=== PATIENT | female | born 1950 | race Hispanic/Latino ===

== ENCOUNTER 2024-06-21 13:51 | Emergency (ER) | payer OTHER ==
--- OUTSIDE RECORDS SUMMARY | 2024-06-21 13:56 | XMS REPORT | Continuity of Care Document ---
Author Name Unknown Address [address] [facility] [address] [place] [address] [facility] thconnect Address [address] [facility] [place] [address] Care Team Providers Care Medicare Compliance Auditor Name Role Phone Donita Boyce Attending Clinician Unavailable Catie Kaminski Attending Clinician Unavailable Dot Paredes Attending Clinician [phone] Daniels_b Attending Clinician Unavailable Nodal_J Attending Clinician Unavailable Adams_R Attending Clinician Unavailable GAYLORD_S Attending Clinician Unavailable Bhavana-Mbayo_A_AH Attending Clinician Unavailable Daniels_b Admitting Clinician Unavailable Nodal_J Admitting Clinician Unavailable Adams_R Admitting Clinician Unavailable GAYLORD_S Admitting Clinician Unavailable Bhavana-Mbayo_A_AH Admitting Clinician Unavailable Payers Payer Name Policy Type Policy Number Effective Date Expirati on Date Source [facility] (MEDICARE REPLACEMENT HMO) [id number] 2020 00:00:00 [facility] C1 [id number] [facility] - [facility] C1 [id number] Com[facility] n [facility] - [facility] C1 [id number] [facility] (MEDICARE REPLACEMENT/ADVAN TAGE - HMO) [id number] 2019 00:00:00 Problems Condition Name Condition Details Condition Category Status Onset Date Resolution Date Last Treatment Date Treating Clinician Comments Source Bilateral tinnitus Tinnitus of both ears Problem [facility] Hearing loss Hearing loss Problem Common [facility] [id number] Hearing difficulty of both ears Problem Common [facility] [id number] Hypertrigl yceridemia Problem Common [facility] Shoulder pain Shoulder pain Problem Common [facility] Blood chemistry abnormal Abnormal blood chemistry Problem Common [facility] Snoring Snoring Problem Common [facility] Sleep apnea Sleep apnea Problem Common [facility] Essential hypertensi on Benign essential HTN Problem Common [facility] Obese Obese Problem Common [facility] [id number] 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 Problem [facility] [id number] Primary osteoarthr itis of both knees Problem Common [facility] Hyperlipid aemia Hyperlipid emia, unspecifie d hyperlipid emia type Problem Common [facility] Hordeolum Hordeolum Problem Comm on [facility] [id number] Ingrown thumb nail, left Problem [facility] [id number] Varicose veins of both lower extremitie s Problem Common [facility] Generalize d osteoarthr itis Generalize d osteoarthr itis Problem [facility] [id number] Neuropathy Problem Com mon [facility] [id number] Bilateral leg paresthesi a Problem [facility] [id number] Unsteady gait Problem Common [facility] Abnormal mammogram Abnormal mammogram Problem Common [facility] Mixed incontinen ce Mixed stress and urge urinary incontinen ce Problem Common [facility] [id number] Primary osteoarthr itis of left shoulder Problem [facility] [id number] Other chronic pain Problem Common [facility] [id number] Lesion of ulnar nerve, unspecifie d upper limb Problem Common [facility] [id number] Subclinica l hypothyroi dism Problem [facility] [id number] Type 2 diabetes mellitus with diabetic neuropathy , unspecifie d Problem [facility] Osteoarthr itis of knee Osteoarthr itis of both knees, unspecifie d osteoarthr itis type Problem [facility] [id number] Bilateral leg cramps Problem [facility] Vitamin D deficiency Vitamin D deficiency Problem [facility] [id number] Ulnar neuropathy of right upper extremity Problem [facility] [id number] Primary osteoarthr itis of right shoulder Problem [facility] Social History Social Habit Start Date Stop Date Quantity Comments Source History of Tobacco Use [facility] Sex Assigned At [facility] Smoking Status Start Date Stop Date Source Never Smoker [facility] Former Smoker 2022-04-14 00:00:00 2022-04-14 00:00:00 [facility] Medications Ordered Medication Name Filled Medication Name Start Date Stop Date Current Medication? Ordering Clinician Indication Dosage Frequency Signature (SIG) Comments Components Source Olopatadine HCl 0.2 % Olopatadine HCl 0.2 % 8-13 00:00: 00 No 1{drop_ into_af fected_ eye} QD Olopatadin e HCl 0.2 % gabapentin 300 mg capsule gabapentin 300 mg capsule Yes [facility] losartan potassium-h ctz 50-12.5 mg tablet losartan potassium-h ctz 50-12.5 mg tablet Yes [facility] pravastatin sodium 40 mg tablet pravastatin sodium 40 mg tablet Yes [facility] Losartan Potassium-H CTZ 50-12.5 MG Losartan Potassium-H CTZ 50-12.5 MG No 1{table t} QD Losartan Potassium- HCTZ 50-12.5 MG Pravastatin Sodium 40 MG Pravastatin Sodium 40 MG No 1{table t} QD Pravastati n Sodium 40 MG oxyBUTYnin Chloride 5 MG oxyBUTYnin Chloride 5 MG No 1{table t} QD oxyBUTYnin Chloride 5 MG Gabapentin 300 MG Gabapentin 300 MG No 1{capsu le} BID Gabapentin 300 MG Levothyroxi ne Sodium 137 MCG Levothyroxi ne Sodium 137 MCG No QD Levothyrox ine Sodium 137 MCG levothyroxi ne sodium 137 mcg tablet levothyroxi ne sodium 137 mcg tablet Yes [facility] Immunizations Ordered Immunization Name Filled Immunization Name Date Status Comments Source Moderna COVID-19 Vaccine (Low Dose Booster) Moderna COVID-19 Vaccine (Low Dose Booster) 2021-04-10 15:36:00 Completed [facility] Moderna COVID-19 Vaccine (Low Dose Booster) Moderna COVID-19 Vaccine (Low Dose Booster) 2021-04-10 15:36:00 Completed [facility] Moderna COVID-19 Vaccine (Low Dose Booster) Moderna COVID-19 Vaccine (Low Dose Booster) 2021-04-10 15:36:00 Completed [facility] Moderna COVID-19 Vaccine (Low Dose Booster) Moderna COVID-19 Vaccine (Low Dose Booster) 2021-04-10 15:36:00 Completed [facility] FLUZONE HIGH DOSE OVER 65 FLUZONE HIGH DOSE OVER 65 2021-03-31 15:34:00 Completed [facility] FLUZONE HIGH DOSE OVER 65 FLUZONE HIGH DOSE OVER 65 2021-03-31 15:34:00 Completed [facility] FLUZONE HIGH DOSE OVER 65 FLUZONE HIGH DOSE OVER 65 2021-03-31 15:34:00 Completed [facility] FLUZONE HIGH DOSE OVER 65 FLUZONE HIGH DOSE OVER 65 2021-03-31 15:34:00 Completed [facility] Shingrix Shingrix 2021-03-11 15:33:00 Completed [facility] Shingrix Shingrix 2021-03-11 15:33:00 Completed [facility] Shingrix Shingrix 2021-03-11 15:33:00 Completed [facility] Shingrix Shingrix 2021-03-11 15:33:00 Completed [facility] Moderna COVID-19 Vaccine Moderna COVID-19 Vaccine 2020-07-14 15:35:00 Completed [facility] Moderna COVID-19 Vaccine Moderna COVID-19 Vaccine 2020-07-14 15:35:00 Completed [facility] Moderna COVID-19 Vaccine Moderna COVID-19 Vaccine 2020-07-14 15:35:00 Completed [facility] Moderna COVID-19 Vaccine Moderna COVID-19 Vaccine 2020-07-14 15:35:00 Completed [facility] Moderna COVID-19 Vaccine Moderna COVID-19 Vaccine 2020-06-12 15:35:00 Completed [facility] Moderna COVID-19 Vaccine Moderna COVID-19 Vaccine 2020-06-12 15:35:00 Completed [facility] Moderna COVID-19 Vaccine Moderna COVID-19 Vaccine 2020-06-12 15:35:00 Completed [facility] Moderna COVID-19 Vaccine Moderna COVID-19 Vaccine 2020-06-12 15:35:00 Completed [facility] Prevnar 13 (PCV13) Prevnar 13 (PCV13) 2016-03-16 15:33:00 Completed [facility] Prevnar 13 (PCV13) Prevnar 13 (PCV13) 2016-03-16 15:33:00 Completed [facility] Prevnar 13 (PCV13) Prevnar 13 (PCV13) 2016-03-16 15:33:00 Completed [facility] Prevnar 13 (PCV13) Prevnar 13 (PCV13) 2016-03-16 15:33:00 Completed [facility] Moderna COVID-19 Vaccine (Low Dose Booster) Moderna COVID-19 Vaccine (Low Dose Booster) Unknown Completed [facility] Pfizer COVID-19 Vaccine Pfizer COVID-19 Vaccine Unknown Completed [facility] Moderna COVID-19 Vaccine Moderna COVID-19 Vaccine Unknown Completed [facility] Shingrix Shingrix Unknown Completed [facility] FLUZONE HIGH DOSE OVER 65 FLUZONE HIGH DOSE OVER 65 Unknown Completed [facility] Prevnar 13 (PCV13) Prevnar 13 (PCV13) Unknown Completed [facility] Moderna COVID-19 Vaccine (Low Dose Booster) Moderna COVID-19 Vaccine (Low Dose Booster) Unknown Completed [facility] Pfizer COVID-19 Vaccine Pfizer COVID-19 Vaccine Unknown Completed [facility] Moderna COVID-19 Vaccine Moderna COVID-19 Vaccine Unknown Completed [facility] Shingrix Shingrix Unknown Completed [facility] FLUZONE HIGH DOSE OVER 65 FLUZONE HIGH DOSE OVER 65 Unknown Completed [facility] Prevnar 13 (PCV13) Prevnar 13 (PCV13) Unknown Completed [facility] Moderna COVID-19 Vaccine (Low Dose Booster) Moderna COVID-19 Vaccine (Low Dose Booster) Unknown Completed [facility] Pfizer COVID-19 Vaccine Pfizer COVID-19 Vaccine Unknown Completed [facility] Moderna COVID-19 Vaccine Moderna COVID-19 Vaccine Unknown Completed [facility] Shingrix Shingrix Unknown Completed [facility] FLUZONE HIGH DOSE OVER 65 FLUZONE HIGH DOSE OVER 65 Unknown Completed [facility] Prevnar 13 (PCV13) Prevnar 13 (PCV13) Unknown Completed [facility] Moderna COVID-19 Vaccine (Low Dose Booster) Moderna COVID-19 Vaccine (Low Dose Booster) Unknown Completed [facility] Pfizer COVID-19 Vaccine Pfizer COVID-19 Vaccine Unknown Completed [facility] Moderna COVID-19 Vaccine Moderna COVID-19 Vaccine Unknown Completed [facility] Shingrix Shingrix Unknown Completed [facility] FLUZONE HIGH DOSE OVER 65 FLUZONE HIGH DOSE OVER 65 Unknown Completed [facility] Prevnar 13 (PCV13) Prevnar 13 (PCV13) Unknown Completed [facility] Moderna COVID-19 Vaccine (Low Dose Booster) Moderna COVID-19 Vaccine (Low Dose Booster) Unknown Completed [facility] Pfizer COVID-19 Vaccine Pfizer COVID-19 Vaccine Unknown Completed [facility] Moderna COVID-19 Vaccine Moderna COVID-19 Vaccine Unknown Completed [facility] Shingrix Shingrix Unknown Completed [facility] FLUZONE HIGH DOSE OVER 65 FLUZONE HIGH DOSE OVER 65 Unknown Completed [facility] Prevnar 13 (PCV13) Prevnar 13 (PCV13) Unknown Completed [facility] Moderna COVID-19 Vaccine (Low Dose Booster) Moderna COVID-19 Vaccine (Low Dose Booster) Unknown Completed [facility] Pfizer COVID-19 Vaccine Pfizer COVID-19 Vaccine Unknown Completed [facility] Moderna COVID-19 Vaccine Moderna COVID-19 Vaccine Unknown Completed [facility] Shingrix Shingrix Unknown Completed [facility] FLUZONE HIGH DOSE OVER 65 FLUZONE HIGH DOSE OVER 65 Unknown Completed [facility] Prevnar 13 (PCV13) Prevnar 13 (PCV13) Unknown Completed [facility] Moderna COVID-19 Vaccine (Low Dose Booster) Moderna COVID-19 Vaccine (Low Dose Booster) Unknown Completed [facility] Pfizer COVID-19 Vaccine Pfizer COVID-19 Vaccine Unknown Completed [facility] Moderna COVID-19 Vaccine Moderna COVID-19 Vaccine Unknown Completed [facility] Shingrix Shingrix Unknown Completed [facility] FLUZONE HIGH DOSE OVER 65 FLUZONE HIGH DOSE OVER 65 Unknown Completed [facility] Prevnar 13 (PCV13) Prevnar 13 (PCV13) Unknown Completed [facility] Moderna COVID-19 Vaccine (Low Dose Booster) Moderna COVID-19 Vaccine (Low Dose Booster) Unknown Completed [facility] Pfizer COVID-19 Vaccine Pfizer COVID-19 Vaccine Unknown Completed [facility] Moderna COVID-19 Vaccine Moderna COVID-19 Vaccine Unknown Completed [facility] Shingrix Shingrix Unknown Completed [facility] FLUZONE HIGH DOSE OVER 65 FLUZONE HIGH DOSE OVER 65 Unknown Completed [facility] Prevnar 13 (PCV13) Prevnar 13 (PCV13) Unknown Completed [facility] Moderna COVID-19 Vaccine (Low Dose Booster) Moderna COVID-19 Vaccine (Low Dose Booster) Unknown Completed [facility] Pfizer COVID-19 Vaccine Pfizer COVID-19 Vaccine Unknown Completed [facility] Moderna COVID-19 Vaccine Moderna COVID-19 Vaccine Unknown Completed [facility] Shingrix Shingrix Unknown Completed [facility] FLUZONE HIGH DOSE OVER 65 FLUZONE HIGH DOSE OVER 65 Unknown Completed [facility] Prevnar 13 (PCV13) Prevnar 13 (PCV13) Unknown Completed [facility] Moderna COVID-19 Vaccine (Low Dose Booster) Moderna COVID-19 Vaccine (Low Dose Booster) Unknown Completed [facility] Pfizer COVID-19 Vaccine Pfizer COVID-19 Vaccine Unknown Completed [facility] Moderna COVID-19 Vaccine Moderna COVID-19 Vaccine Unknown Completed [facility] Shingrix Shingrix Unknown Completed [facility] FLUZONE HIGH DOSE OVER 65 FLUZONE HIGH DOSE OVER 65 Unknown Completed [facility] Prevnar 13 (PCV13) Prevnar 13 (PCV13) Unknown Completed [facility] Moderna COVID-19 Vaccine (Low Dose Booster) Moderna COVID-19 Vaccine (Low Dose Booster) Unknown Completed [facility] Pfizer COVID-19 Vaccine Pfizer COVID-19 Vaccine Unknown Completed [facility] Moderna COVID-19 Vaccine Moderna COVID-19 Vaccine Unknown Completed [facility] Shingrix Shingrix Unknown Completed [facility] FLUZONE HIGH DOSE OVER 65 FLUZONE HIGH DOSE OVER 65 Unknown Completed [facility] Prevnar 13 (PCV13) Prevnar 13 (PCV13) Unknown Completed [facility] Moderna COVID-19 Vaccine (Low Dose Booster) Moderna COVID-19 Vaccine (Low Dose Booster) Unknown Completed [facility] Pfizer COVID-19 Vaccine Pfizer COVID-19 Vaccine Unknown Completed [facility] Moderna COVID-19 Vaccine Moderna COVID-19 Vaccine Unknown Completed [facility] Shingrix Shingrix Unknown Completed [facility] FLUZONE HIGH DOSE OVER 65 FLUZONE HIGH DOSE OVER 65 Unknown Completed [facility] Prevnar 13 (PCV13) Prevnar 13 (PCV13) Unknown Completed [facility] Moderna COVID-19 Vaccine (Low Dose Booster) Moderna COVID-19 Vaccine (Low Dose Booster) Unknown Completed [facility] Pfizer COVID-19 Vaccine Pfizer COVID-19 Vaccine Unknown Completed [facility] Moderna COVID-19 Vaccine Moderna COVID-19 Vaccine Unknown Completed [facility] Shingrix Shingrix Unknown Completed [facility] FLUZONE HIGH DOSE OVER 65 FLUZONE HIGH DOSE OVER 65 Unknown Completed [facility] Prevnar 13 (PCV13) Prevnar 13 (PCV13) Unknown Completed [facility] MODERNA COVID-19 VACCINE (LOW DOSE BOOSTER) MODERNA COVID-19 VACCINE (LOW DOSE BOOSTER) Unknown Completed [facility] Pfizer COVID-19 Vaccine Pfizer COVID-19 Vaccine Unknown Completed [facility] Moderna COVID-19 Vaccine Moderna COVID-19 Vaccine Unknown Completed [facility] Shingrix Shingrix Unknown Completed [facility] FLUZONE HIGH DOSE OVER 65 FLUZONE HIGH DOSE OVER 65 Unknown Completed [facility] Prevnar 13 (PCV13) Prevnar 13 (PCV13) Unknown Completed [facility] MODERNA COVID-19 VACCINE (LOW DOSE BOOSTER) MODERNA COVID-19 VACCINE (LOW DOSE BOOSTER) Unknown Completed [facility] Pfizer COVID-19 Vaccine Pfizer COVID-19 Vaccine Unknown Completed [facility] Moderna COVID-19 Vaccine Moderna COVID-19 Vaccine Unknown Completed [facility] Shingrix Shingrix Unknown Completed [facility] FLUZONE HIGH DOSE OVER 65 FLUZONE HIGH DOSE OVER 65 Unknown Completed [facility] Prevnar 13 (PCV13) Prevnar 13 (PCV13) Unknown Completed [facility] MODERNA COVID-19 VACCINE (LOW DOSE BOOSTER) MODERNA COVID-19 VACCINE (LOW DOSE BOOSTER) Unknown Completed [facility] Pfizer COVID-19 Vaccine Pfizer COVID-19 Vaccine Unknown Completed [facility] Moderna COVID-19 Vaccine Moderna COVID-19 Vaccine Unknown Completed [facility] Shingrix Shingrix Unknown Completed [facility] FLUZONE HIGH DOSE OVER 65 FLUZONE HIGH DOSE OVER 65 Unknown Completed [facility] Prevnar 13 (PCV13) Prevnar 13 (PCV13) Unknown Completed [facility] Fluzone High-Dose (IIV4-HD) - SDS - 0.7mL Fluzone High-Dose (IIV4-HD) - SDS - 0.7mL Unknown Completed [facility] Moderna COVID-19 Vaccine, Fall 2022, 12 years and up Moderna COVID-19 Vaccine, Fall 2022, 12 years and up Unknown Completed [facility] Vital Signs Vital Name Observation Time Observation Value Comments S janell height 2024-04-23 11:20:00 62 [in_i] Commo n [facility] weight 2024-04-23 11:20:00 173 [lb_av] Comm on [facility] temperature 2024-04-23 11:20:00 97.6 [degF] Com mon [facility] bmi 2024-04-23 11:20:00 31.64 kg/m2 Comm on [facility] oximetry 2024-04-23 11:20:00 96 % Commo n [facility] respiratory rate 2024-04-23 11:20:00 16 /min Common [facility] blood pressure systolic 2024-04-23 11:20:00 120 mm[Hg] Common [facility] blood pressure diastolic 2024-04-23 11:20:00 58 mm[Hg] [facility] height 2024-01-22 08:40:00 62 [in_i] Commo n [facility] weight 2024-01-22 08:40:00 175.8 [lb_av] Co mmon [facility] temperature 2024-01-22 08:40:00 97.5 [degF] Com [facility] bmi 2024-01-22 08:40:00 32.15 kg/m2 Comm on [facility] oximetry 2024-01-22 08:40:00 98 % Commo n [facility] respiratory rate 2024-01-22 08:40:00 16 /min Common [facility] blood pressure systolic 2024-01-22 08:40:00 124 mm[Hg] Common [facility] blood pressure diastolic 2024-01-22 08:40:00 76 mm[Hg] Common [facility] height 2024-01-22 08:40:00 62 [in_i] Commo n [facility] weight 2024-01-22 08:40:00 175.8 [lb_av] Co mmon [facility] temperature 2024-01-22 08:40:00 97.5 [degF] Com [facility] bmi 2024-01-22 08:40:00 32.15 kg/m2 Comm on [facility] oximetry 2024-01-22 08:40:00 98 % Commo n [facility] respiratory rate 2024-01-22 08:40:00 16 /min Common [facility] blood pressure systolic 2024-01-22 08:40:00 124 mm[Hg] [facility] blood pressure diastolic 2024-01-22 08:40:00 76 mm[Hg] [facility] height 2023 09:40:00 62 [in_i] Commo n [facility] weight 2023 09:40:00 173 [lb_av] Comm on [facility] temperature 2023 09:40:00 97.2 [degF] Com mon [facility] bmi 2023 09:40:00 31.64 kg/m2 Comm on [facility] oximetry 2023 09:40:00 98 % Commo n [facility] respiratory rate 2023 09:40:00 16 /min [facility] blood pressure systolic 2023 09:40:00 132 mm[Hg] [facility] blood pressure diastolic 2023 09:40:00 66 mm[Hg] Common [facility] height 2023-06-12 14:00:00 62 [in_i] Commo n [facility] weight 2023-06-12 14:00:00 174 [lb_av] Comm on [facility] temperature 2023-06-12 14:00:00 97.0 [degF] Com mon [facility] bmi 2023-06-12 14:00:00 31.82 kg/m2 Comm on [facility] oximetry 2023-06-12 14:00:00 97 % Commo n [facility] respiratory rate 2023-06-12 14:00:00 16 /min [facility] blood pressure systolic 2023-06-12 14:00:00 132 mm[Hg] [facility] blood pressure diastolic 2023-06-12 14:00:00 66 mm[Hg] Common [facility] height 2023-06-12 14:00:00 62 [in_i] Commo n [facility] weight 2023-06-12 14:00:00 174 [lb_av] Comm on [facility] temperature 2023-06-12 14:00:00 97.0 [degF] Com mon [facility] bmi 2023-06-12 14:00:00 31.82 kg/m2 Comm on [facility] oximetry 2023-06-12 14:00:00 97 % Commo n [facility] respiratory rate 2023-06-12 14:00:00 16 /min [facility] blood pressure systolic 2023-06-12 14:00:00 132 mm[Hg] Common [facility] blood pressure diastolic 2023-06-12 14:00:00 66 mm[Hg] Common [facility] height 2023-03-27 09:00:00 62 [in_i] Commo n [facility] weight 2023-03-27 09:00:00 173.8 [lb_av] Co mmon [facility] temperature 2023-03-27 09:00:00 97.2 [degF] Com [facility] bmi 2023-03-27 09:00:00 31.78 kg/m2 Comm on [facility] oximetry 2023-03-27 09:00:00 96 % Commo n [facility] respiratory rate 2023-03-27 09:00:00 16 /min Common [facility] blood pressure systolic 2023-03-27 09:00:00 128 mm[Hg] [facility] blood pressure diastolic 2023-03-27 09:00:00 66 mm[Hg] Common [facility] height 2023-02-09 08:00:00 62 [in_i] Commo n [facility] weight 2023-02-09 08:00:00 173 [lb_av] Comm on [facility] temperature 2023-02-09 08:00:00 97.1 [degF] Com [facility] bmi 2023-02-09 08:00:00 31.64 kg/m2 Comm on [facility] oximetry 2023-02-09 08:00:00 98 % Commo n [facility] respiratory rate 2023-02-09 08:00:00 16 /min Common [facility] blood pressure systolic 2023-02-09 08:00:00 124 mm[Hg] Common Spiri t [facility] blood pressure diastolic 2023-02-09 08:00:00 68 mm[Hg] Common [facility] height 2022-12-25 08:00:00 62 [in_i] Commo n [facility] weight 2022-12-25 08:00:00 177.4 [lb_av] Co mmon [facility] temperature 2022-12-25 08:00:00 97.6 [degF] Com [facility] bmi 2022-12-25 08:00:00 32.44 kg/m2 Comm on [facility] oximetry 2022-12-25 08:00:00 97 % Commo n [facility] respiratory rate 2022-12-25 08:00:00 16 /min Common [facility] blood pressure systolic 2022-12-25 08:00:00 121 mm[Hg] Common Spiri t [facility] blood pressure diastolic 2022-12-25 08:00:00 63 mm[Hg] [facility] height 2022-12-25 08:20:00 62 [in_i] Commo n [facility] weight 2022-12-25 08:20:00 177.4 [lb_av] Co mmon [facility] temperature 2022-12-25 08:20:00 97.6 [degF] Com mon [facility] bmi 2022-12-25 08:20:00 32.44 kg/m2 Comm on [facility] oximetry 2022-12-25 08:20:00 97 % Commo n [facility] respiratory rate 2022-12-25 08:20:00 16 /min Common [facility] blood pressure systolic 2022-12-25 08:20:00 121 mm[Hg] [facility] blood pressure diastolic 2022-12-25 08:20:00 63 mm[Hg] [facility] height 2022-09-26 11:20:00 62 [in_i] Commo n [facility] weight 2022-09-26 11:20:00 176 [lb_av] Comm on [facility] temperature 2022-09-26 11:20:00 98.0 [degF] Com mon [facility] bmi 2022-09-26 11:20:00 32.19 kg/m2 Comm on [facility] oximetry 2022-09-26 11:20:00 97 % Commo n [facility] respiratory rate 2022-09-26 11:20:00 16 /min [facility] blood pressure systolic 2022-09-26 11:20:00 130 mm[Hg] Common [facility] blood pressure diastolic 2022-09-26 11:20:00 76 mm[Hg] Common [facility] height 2022-04-14 09:40:00 62 [in_i] Commo n [facility] weight 2022-04-14 09:40:00 177.8 [lb_av] Co mmon [facility] temperature 2022-04-14 09:40:00 97.4 [degF] Com [facility] bmi 2022-04-14 09:40:00 32.52 kg/m2 Comm on [facility] oximetry 2022-04-14 09:40:00 95 % Commo n [facility] respiratory rate 2022-04-14 09:40:00 15 /min Common [facility] blood pressure systolic 2022-04-14 09:40:00 118 mm[Hg] Common [facility] blood pressure diastolic 2022-04-14 09:40:00 56 mm[Hg] Common [facility] height 2022-01-10 08:00:00 62 [in_i] Commo n [facility] weight 2022-01-10 08:00:00 181.0 [lb_av] Co on [facility] temperature 2022-01-10 08:00:00 97.2 [degF] Com [facility] bmi 2022-01-10 08:00:00 33.1 kg/m2 Commo n [facility] oximetry 2022-01-10 08:00:00 95 % Commo n [facility] respiratory rate 2022-01-10 08:00:00 16 /min [facility] blood pressure systolic 2022-01-10 08:00:00 132 mm[Hg] Common [facility] blood pressure diastolic 2022-01-10 08:00:00 64 mm[Hg] Common [facility] height 2022-01-10 08:00:00 62 [in_i] Commo n [facility] weight 2022-01-10 08:00:00 181.0 [lb_av] Co mmon [facility] temperature 2022-01-10 08:00:00 97.2 [degF] Com [facility] bmi 2022-01-10 08:00:00 33.10 kg/m2 Comm on [facility] oximetry 2022-01-10 08:00:00 95 % Commo n [facility] respiratory rate 2022-01-10 08:00:00 16 /min Common [facility] blood pressure systolic 2022-01-10 08:00:00 132 mm[Hg] Common Spiri t [facility] blood pressure diastolic 2022-01-10 08:00:00 64 mm[Hg] Common [facility] height 2021-04-11 13:00:00 62 [in_i] Commo n [facility] weight 2021-04-11 13:00:00 183.6 [lb_av] Co mmon [facility] temperature 2021-04-11 13:00:00 97.9 [degF] Com mon [facility] bmi 2021-04-11 13:00:00 33.58 kg/m2 Comm on [facility] oximetry 2021-04-11 13:00:00 97 % Commo n [facility] respiratory rate 2021-04-11 13:00:00 16 /min Common [facility] blood pressure systolic 2021-04-11 13:00:00 140 mm[Hg] Common [facility] blood pressure diastolic 2021-04-11 13:00:00 64 mm[Hg] Common [facility] height 2021-04-11 13:20:00 62 [in_i] Commo n [facility] weight 2021-04-11 13:20:00 183.6 [lb_av] Co mmon [facility] temperature 2021-04-11 13:20:00 97.9 [degF] Com mon [facility] bmi 2021-04-11 13:20:00 33.58 kg/m2 Comm on [facility] oximetry 2021-04-11 13:20:00 97 % Commo n [facility] respiratory rate 2021-04-11 13:20:00 16 /min [facility] blood pressure systolic 2021-04-11 13:20:00 140 mm[Hg] Common [facility] blood pressure diastolic 2021-04-11 13:20:00 64 mm[Hg] [facility] Encounters Start Date/Time End Date/Time Encounter Type Admission Type Attending [facility] Care Department Encounter ID Source 2024-04-21 09:24:00 Outpatient Donita Boyce [facility] [id number] [facility] 2024-01-18 09:22:00 Outpatient Donita Boyce [facility] ST[facility] [id number] [facility] 2023-08-29 07:41:00 Outpatient Donita Boyce [facility] ST[facility] [id number] [facility] 2023-06-12 08:39:00 Outpatient Donita Boyce STL[facility] ST[facility] [id number] [facility] 2023-03-23 08:44:00 Outpatient Donita Boyce STLML[facility] ST[facility] [id number] [facility] 2023-02-08 08:30:00 Outpatient Donita Boyce STLMLC STL[facility] [id number] [facility] 2022-12-21 07:44:00 Outpatient Donita Boyce STL[facility] ST[facility] [id number] [facility] 2022-07-27 10:32:00 Outpatient Donita Boyce STLML[facility] ST[facility] [id number] [facility] 2022-07-26 08:37:00 Outpatient Donita Boyce ST[facility] ST[facility] [id number] [facility] 2022-07-13 13:23:00 Outpatient Donita Boyce STL[facility] ST[facility] [id number] [facility] 2022-04-12 13:53:01 Outpatient Catie Kaminski STLMLC ST[facility]C [id number] [facility] 2021-07-06 12:42:11 Outpatient Kaminski, Na STLMLC STLMLC [id number] [facility] 2021-07-06 12:39:53 Outpatient Kaminski, Na STLMLC ST[facility]C [id number] [facility] 2021-07-06 12:12:45 Outpatient Kaminski, Na STLMLC ST[facility]C [id number] [facility] 2021-07-06 11:45:21 Outpatient Kaminski, Na STLMLC STL[facility]C [id number] [facility] 2021-07-06 11:37:50 Outpatient Kaminski, Na STLMLC ST[facility]C [id number] [facility] 2021-07-06 11:33:32 Outpatient Kaminski, Na STLMLC STL[facility]C [id number] [facility] 2021-07-06 11:04:26 Outpatient Gordy, Na STLMLC STLMLC [id number] [facility] 2021-07-06 10:57:29 Outpatient Kaminski, Na STLMLC STL[facility]C [id number] [facility] 2024-05-05 00:00:00 2024-05-05 00:00:00 (TEL) STLMLC STLMLC [id number] [facility] 2024-04-23 00:00:00 2024-04-23 00:00:00 OFFICE VISIT ESTAB PT LEVEL 4 [facility]LMLC STLMLC [id number] [facility] 2024-04-21 00:00:00 2024-04-21 00:00:00 (TEL) STLMLC STL[facility]C [id number] [facility] 2024-04-14 00:00:00 2024-04-14 00:00:00 (TEL) STLMLC STLMLC [id number] [facility] 2024-01-24 14:00:00 2024-01-24 14:30:00 Annual [facility] Dot Paredes [id number] [facility] 2024-01-22 00:00:00 2024-01-22 00:00:00 OFFICE VISIT ESTAB PT LEVEL 4 [facility]C STL[facility]C [id number] [facility] 2024-01-15 00:00:00 2024-01-15 00:00:00 (TEL) STLMLC STLMLC [id number] [facility] 2023 00:00:00 2023 00:00:00 OFFICE VISIT ESTAB PT LEVEL 4 [facility] STL[facility]C [id number] [facility] 2023-08-06 00:00:00 2023-08-06 00:00:00 (TEL) STLMLC STLMLC [id number] [facility] 2023-06-12 00:00:00 2023-06-12 00:00:00 OFFICE VISIT ESTAB PT LEVEL 4 [facility]C STL[facility]C [id number] [facility] 2023-06-12 00:00:00 2023-06-12 00:00:00 SUB ANNUAL [facility] WELLNESS VISIT STLMLC STLMLC [id number] [facility] 2023-04-16 00:00:00 2023-04-16 00:00:00 (TEL) STLMLC STLMLC [id number] [facility] 2023-03-27 00:00:00 2023-03-27 00:00:00 OFFICE VISIT ESTAB PT LEVEL 4 [facility]C STLMLC [id number] [facility] 2023-02-09 00:00:00 2023-02-09 00:00:00 OFFICE VISIT ESTAB PT LEVEL 4 [facility]C STLMLC [id number] [facility] 2023-01-30 00:00:00 2023-01-30 00:00:00 (TEL) STLMLC STLMLC [id number] [facility] 2022-12-25 00:00:00 2022-12-25 00:00:00 OFFICE VISIT ESTAB PT LEVEL 4 STLMLC STLMLC [id number] [facility] 2022-12-25 00:00:00 2022-12-25 00:00:00 SUB ANNUAL [facility] WELLNESS VISIT STLMLC STLMLC [id number] [facility] 2022-11-23 00:00:00 2022-11-23 00:00:00 Outpatient Daniels_b DMG DMG [id number] [facility] 2022-11-09 00:00:00 2022-11-09 00:00:00 (TEL) STLMLC STLMLC [id number] [facility] 2022-10-19 00:00:00 2022-10-19 00:00:00 (TEL) STLMLC STLMLC [id number] [facility] 2022-10-12 00:00:00 2022-10-12 00:00:00 (TEL) STLMLC STLMLC [id number] [facility] 2022-09-26 00:00:00 2022-09-26 00:00:00 OFFICE VISIT ESTAB PT LEVEL 4 [facility]LMLC STLMLC [id number] [facility] 2022 00:00:00 2022 00:00:00 Outpatient Nodal_J DMG DMG [id number] [facility] 2022 00:00:00 2022 00:00:00 Outpatient Nodal_J DMG DMG [id number] [facility] 2022-07-28 00:00:00 2022-07-28 00:00:00 OFFICE VISIT ESTAB PT LEVEL 4 STLMLC STLMLC [id number] [facility] 2022-05-05 00:00:00 2022-05-05 00:00:00 (TEL) STLMLC STLMLC [id number] [facility] 2022-04-14 00:00:00 2022-04-14 00:00:00 OFFICE VISIT EST PT LEVEL 3 STLMLC STLMLC [id number] [facility] 2022-01-11 00:00:00 2022-01-11 00:00:00 (TEL) STLMLC STLMLC [id number] [facility] 2022-01-10 00:00:00 2022-01-10 00:00:00 SUB ANNUAL [facility] WELLNESS VISIT STLMLC STLMLC [id number] [facility] 2022-01-10 00:00:00 2022-01-10 00:00:00 OFFICE VISIT EST PT LEVEL 3 STLMLC STLMLC [id number] [facility] 2021-12-23 07:17:00 2021-12-23 07:17:00 Outpatient Adams_R DMG [facility] [id number] [facility] 2021-12-22 00:00:00 2021-12-22 00:00:00 (TEL) STLMLC STLMLC [id number] [facility] 2021-08-12 00:00:00 2021-08-12 00:00:00 (TEL) STLMLC STLMLC [id number] [facility] 2021-07-20 01:56:00 2021-07-20 01:56:00 Outpatient Adams_R DMG [facility] [place] [id number] [facility] 2021-06-16 02:42:00 2021-06-16 02:42:00 Outpatient Adams_R DMG [facility] [place] [id number] [facility] 2021-04-11 00:00:00 2021-04-11 00:00:00 SUB ANNUAL MCR WELLNESS VISIT STLMLC STLMLC [id number] [facility] 2021-04-11 00:00:00 2021-04-11 00:00:00 OFFICE VISIT EST PT LEVEL 3 STLMLC STLMLC [id number] [facility] 2021-03-14 00:00:00 2021-03-14 00:00:00 (TEL) STLMLC STLMLC [id number] [facility] 2020-11-30 00:00:00 2020-11-30 00:00:00 Outpatient STLMLC STLMLC [id number] [facility] 2020-11-30 00:00:00 2020-11-30 00:00:00 Outpatient STLMLC STLMLC [id number] [facility] 2020-11-23 00:00:00 2020-11-23 00:00:00 Outpatient STLMLC STLMLC [id number] [facility] 2020-10-20 02:10:00 2020-10-20 02:10:00 Outpatient GAYLORD_S DMG DMG [id number] [facility] 2020-10-06 03:28:00 2020-10-06 03:28:00 Outpatient Bhavana-Mbayo _A_AH VFP VFP [id number] [facility] 2020-09-22 00:00:00 2020-09-22 00:00:00 Outpatient STLMLC STLMLC [id number] [facility] 2020 00:00:00 2020 00:00:00 Outpatient STLMLC STLMLC [id number] [facility] 2020-07-09 00:00:00 2020-07-09 00:00:00 Outpatient STLMLC STLMLC [id number] [facility] 2020-05-25 00:00:00 2020-05-25 00:00:00 Outpatient STLMLC STLMLC [id number] [facility] 2020-02-24 16:00:00 2020-02-24 16:00:[address] [facility] [address] [facility] [id number] [facility] 2020-01-13 08:40:00 2020-01-13 08:40:[address] [facility] [id number] [facility] 2019-12-31 08:12:00 2019-12-31 08:12:[address] [facility] [id number] [facility] 2019-10-08 15:46:00 2019-10-08 15:46:00 [facility] [id number] [facility] 2019-08-21 02:25:00 2019-08-21 02:25:00 Outpatient Bhavana-Mbayo _A_AH VFP VFP [id number] [facility] 2019-08-21 02:25:00 2019-08-21 02:25:00 Outpatient Bhavana-Mbayo _A_AH VFP VFP [id number] [facility] 2019-08-21 02:25:00 2019-08-21 02:25:00 Outpatient Bhavana-Mbayo _A_AH VFP VFP [id number] [facility] 2019-08-21 02:25:00 2019-08-21 02:25:00 Outpatient Bhavana-Mbayo _A_AH VFP VFP [id number] [facility] 2019-08-06 15:37:00 2019-08-06 15:37:00 [facility] [id number] [facility] 2019-08-05 08:42:00 2019-08-05 08:42:00 [facility] [id number] [facility] 2019-07-30 07:12:00 2019-07-30 07:12:00 Outpatient Bhavana-Mbayo _A_AH VFP VFP [id number] [facility] 2019-07-10 13:20:00 2019-07-10 13:20:[address] [facility] [place] [facility] [id number] [facility] 2019-07-03 12:23:00 2019-07-03 12:23:00 [facility] [id number] [facility] 2019-07-03 10:00:00 2019-07-03 10:00:00 [facility] [id number] [facility] 2019-06-19 14:30:00 2019-06-19 14:30:00 [facility] [id number] [facility] 2019-06-12 11:00:00 2019-06-12 11:00:[address] [facility] [id number] [facility] 2019-05-30 15:48:00 2019-05-30 15:48:[address] [facility] [id number] [facility] 2019-04-16 10:00:00 2019-04-16 10:00:[address] [facility] [facility] [id number] [facility] 2019-03-10 08:00:00 2019-03-10 08:00:[address] [facility] [facility] [id number] [facility] 2018-11-20 08:00:00 2018-11-20 08:00:[address] [facility] [id number] [facility] 2018-08-20 09:00:00 2018-08-20 09:00:[address] [facility] [facility] [id number] [facility] 2018-07-11 09:11:00 2018-07-11 09:11:[address] [facility] [id number] [facility] 2018-05-22 09:00:00 2018-05-22 09:00:[address] [facility] [facility] [id number] [facility] 2018-02-19 09:00:00 2018-02-19 09:00:[address] [facility] [id number] [facility] 2017-11-06 08:15:00 2017-11-06 08:15:00 Outpatient [facility] [id number] [facility] 2017-10-22 09:18:00 2017-10-22 09:18:00 Outpatient [facility] [id number] [facility] 2017-10-02 22:22:00 2017-10-02 22:22:00 Outpatient [facility] [id number] [facility] 2017-09-26 08:00:00 2017-09-26 08:00:00 Outpatient [facility] [id number] [facility] Results Test Description Test Time Test Comments Results Result Co mments Source CBC W/AUTO [id number] 00:00:00* Test Item Value Reference Range Interpretation Comme nts NUCLEATED RBCS (test code = 83596-6) 0.0 /100 WBC'S See_Comment [Automated messa ge] The system which generated this result transmitted reference range: 0.0 /100 WBC'S. The reference range was not used to interpret this result as normal/abnormal. ABSOLUTE EOSINOPHILS (test code = 77791-3) 0.28 K/UL See_Comment [Automated messa ge] The system which generated this result transmitted reference range: 0.00-0.50 K/UL. The reference range was not used to interpret this result as normal/abnormal. ABSOLUTE LYMPHOCYTES (test code = 11827-0) 2.02 K/UL See_Comment [Automated messa ge] The system which generated this result transmitted reference range: 1.00-4.00 K/UL. The reference range was not used to interpret this result as normal/abnormal. ABSOLUTE MONOCYTES (test code = 37550-7) 0.54 K/UL See_Comment [Automated messa ge] The system which generated this result transmitted reference range: 0.20-1.00 K/UL. The reference range was not used to interpret this result as normal/abnormal. ABSOLUTE NEUTROPHILS (test code = 49203-5) 2.67 K/UL See_Comment [Automated messa ge] The system which generated this result transmitted reference range: 1.50-7.50 K/UL. The reference range was not used to interpret this result as normal/abnormal. BASOPHILS (test code = 79735-7) 1.4 % EOSINOPHILS (test code = 94024-1) 5.0 % HEMATOCRIT (test code = 09997-2) 42.4 % See_Comment [Automated messa ge] The system which generated this result transmitted reference range: 34.0-45.0 %. The reference range was not used to interpret this result as normal/abnormal. HEMOGLOBIN (test code = 718-7) 13.8 G/DL See_Comment [Automated messa ge] The system which generated this result transmitted reference range: 11.5-15.5 G/DL. The reference range was not used to interpret this result as normal/abnormal. LYMPHOCYTES (test code = 47245-1) 36.0 % MCH (test code = 33036-2) 31.6 PG See_Comment [Automated messa ge] The system which generated this result transmitted reference range: 25.0-33.0 PG. The reference range was not used to interpret this result as normal/abnormal. MCHC (test code = 36244-3) 32.5 G/DL See_Comment [Automated messa ge] The system which generated this result transmitted reference range: 31.0-36.0 G/DL. The reference range was not used to interpret this result as normal/abnormal. MCV (test code = 42568-6) 97.0 fL See_Comment [Automated messa ge] The system which generated this result transmitted reference range: 80.0-99.0 fL. The reference range was not used to interpret this result as normal/abnormal. MONOCYTES (test code = 49768-9) 9.6 % NEUTROPHILS (test code = 72378-4) 47.6 % PLATELET COUNT (test code = 06456-6) 198 K/UL See_Comment [Automated messa ge] The system which generated this result transmitted reference range: 130-400 K/UL. The reference range was not used to interpret this result as normal/abnormal. RBC (test code = 04581-5) 4.37 M/UL See_Comment [Automated messa ge] The system which generated this result transmitted reference range: 3.80-5.40 M/UL. The reference range was not used to interpret this result as normal/abnormal. RDW (test code = 02889-4) 12.0 % See_Comment [Automated messa ge] The system which generated this result transmitted reference range: 11.5-15.0 %. The reference range was not used to interpret this result as normal/abnormal. WBC (test code = 42674-2) 5.6 K/UL See_Comment [Automated messa ge] The system which generated this result transmitted reference range: 3.5-11.0 K/UL. The reference range was not used to interpret this result as normal/abnormal. TSH + FREE T4 [id number] 00:00:00* Test Item Value Reference Range Interpretation Comme nts FREE T4 (THYROXINE) (test code = 3024-7) 0.93 NG/DL See_Comment [Automated message] The system which generated this result transmitted reference range: 0.80-1.90 NG/DL. The reference range was not used to interpret this result as normal/abnormal. TSH, THIRD GENERATION (test code = 38777-5) 6.200 UIU/ML See_Comment H [Automated messa ge] The system which generated this result transmitted reference range: 0.400-4.100 UIU/ML. The reference range was not used to interpret this result as normal/abnormal. CBC W/AUTO [id number] 00:00:00* Test Item Value Reference Range Interpretation Comme nts NUCLEATED RBCS (test code = 58528-5) 0.0 /100 WBC'S See_Comment [Automated messa ge] The system which generated this result transmitted reference range: 0.0 /100 WBC'S. The reference range was not used to interpret this result as normal/abnormal. ABSOLUTE EOSINOPHILS (test code = 70874-2) 0.23 K/UL See_Comment [Automated messa ge] The system which generated this result transmitted reference range: 0.00-0.50 K/UL. The reference range was not used to interpret this result as normal/abnormal. ABSOLUTE LYMPHOCYTES (test code = 95410-0) 2.54 K/UL See_Comment [Automated messa ge] The system which generated this result transmitted reference range: 1.00-4.00 K/UL. The reference range was not used to interpret this result as normal/abnormal. ABSOLUTE MONOCYTES (test code = 46026-9) 0.52 K/UL See_Comment [Automated messa ge] The system which generated this result transmitted reference range: 0.20-1.00 K/UL. The reference range was not used to interpret this result as normal/abnormal. ABSOLUTE NEUTROPHILS (test code = 13940-7) 2.45 K/UL See_Comment [Automated messa ge] The system which generated this result transmitted reference range: 1.50-7.50 K/UL. The reference range was not used to interpret this result as normal/abnormal. BASOPHILS (test code = 11770-6) 1.7 % EOSINOPHILS (test code = 59645-5) 3.9 % HEMATOCRIT (test code = 24806-4) 42.4 % See_Comment [Automated messa ge] The system which generated this result transmitted reference range: 34.0-45.0 %. The reference range was not used to interpret this result as normal/abnormal. HEMOGLOBIN (test code = 718-7) 14.7 G/DL See_Comment [Automated messa ge] The system which generated this result transmitted reference range: 11.5-15.5 G/DL. The reference range was not used to interpret this result as normal/abnormal. LYMPHOCYTES (test code = 83685-8) 43.4 % MCH (test code = 31430-2) 32.5 PG See_Comment [Automated messa ge] The system which generated this result transmitted reference range: 25.0-33.0 PG. The reference range was not used to interpret this result as normal/abnormal. MCHC (test code = 06944-1) 34.7 G/DL See_Comment [Automated messa ge] The system which generated this result transmitted reference range: 31.0-36.0 G/DL. The reference range was not used to interpret this result as normal/abnormal. MCV (test code = 33351-9) 93.6 fL See_Comment [Automated messa ge] The system which generated this result transmitted reference range: 80.0-99.0 fL. The reference range was not used to interpret this result as normal/abnormal. MONOCYTES (test code = 87044-9) 8.9 % NEUTROPHILS (test code = 06716-3) 41.9 % PLATELET COUNT (test code = 29359-0) 205 K/UL See_Comment [Automated messa ge] The system which generated this result transmitted reference range: 130-400 K/UL. The reference range was not used to interpret this result as normal/abnormal. RBC (test code = 23536-0) 4.53 M/UL See_Comment [Automated messa ge] The system which generated this result transmitted reference range: 3.80-5.40 M/UL. The reference range was not used to interpret this result as normal/abnormal. RDW (test code = 29146-8) 12.1 % See_Comment [Automated messa ge] The system which generated this result transmitted reference range: 11.5-15.0 %. The reference range was not used to interpret this result as normal/abnormal. WBC (test code = 63974-7) 5.9 K/UL See_Comment [Automated messa ge] The system which generated this result transmitted reference range: 3.5-11.0 K/UL. The reference range was not used to interpret this result as normal/abnormal. TSH + FREE T4 [id number] 00:00:00* Test Item Value Reference Range Interpretation Comme nts FREE T4 (THYROXINE) (test code = 3024-7) 1.48 NG/DL See_Comment [Automated message] The system which generated this result transmitted reference range: 0.80-1.90 NG/DL. The reference range was not used to interpret this result as normal/abnormal. TSH, THIRD GENERATION (test code = 51012-0) 1.960 UIU/ML See_Comment [Automated messa ge] The system which generated this result transmitted reference range: 0.400-4.100 UIU/ML. The reference range was not used to interpret this result as normal/abnormal. CBC W/AUTO [id number] 00:00:00* Test Item Value Reference Range Interpretation Comme nts NUCLEATED RBCS (test code = 70165-8) 0.0 /100 WBC'S See_Comment [Automated messa ge] The system which generated this result transmitted reference range: 0.0 /100 WBC'S. The reference range was not used to interpret this result as normal/abnormal. ABSOLUTE EOSINOPHILS (test code = 09344-3) 0.19 K/UL See_Comment [Automated messa ge] The system which generated this result transmitted reference range: 0.00-0.50 K/UL. The reference range was not used to interpret this result as normal/abnormal. ABSOLUTE LYMPHOCYTES (test code = 52649-0) 2.20 K/UL See_Comment [Automated messa ge] The system which generated this result transmitted reference range: 1.00-4.00 K/UL. The reference range was not used to interpret this result as normal/abnormal. ABSOLUTE MONOCYTES (test code = 53007-4) 0.38 K/UL See_Comment [Automated messa ge] The system which generated this result transmitted reference range: 0.20-1.00 K/UL. The reference range was not used to interpret this result as normal/abnormal. ABSOLUTE NEUTROPHILS (test code = 15821-2) 2.19 K/UL See_Comment [Automated messa ge] The system which generated this result transmitted reference range: 1.50-7.50 K/UL. The reference range was not used to interpret this result as normal/abnormal. BASOPHILS (test code = 83000-7) 1.4 % EOSINOPHILS (test code = 06378-0) 3.8 % HEMATOCRIT (test code = 46847-8) 41.4 % See_Comment [Automated messa ge] The system which generated this result transmitted reference range: 34.0-45.0 %. The reference range was not used to interpret this result as normal/abnormal. HEMOGLOBIN (test code = 718-7) 13.8 G/DL See_Comment [Automated messa ge] The system which generated this result transmitted reference range: 11.5-15.5 G/DL. The reference range was not used to interpret this result as normal/abnormal. LYMPHOCYTES (test code = 58659-7) 43.7 % MCH (test code = 33301-6) 31.1 PG See_Comment [Automated messa ge] The system which generated this result transmitted reference range: 25.0-33.0 PG. The reference range was not used to interpret this result as normal/abnormal. MCHC (test code = 92111-8) 33.3 G/DL See_Comment [Automated messa ge] The system which generated this result transmitted reference range: 31.0-36.0 G/DL. The reference range was not used to interpret this result as normal/abnormal. MCV (test code = 65627-0) 93.2 fL See_Comment [Automated RETCa ge] The system which generated this result transmitted reference range: 80.0-99.0 fL. The reference range was not used to interpret this result as normal/abnormal. MONOCYTES (test code = 99358-0) 7.5 % NEUTROPHILS (test code = 93163-7) 43.4 % PLATELET COUNT (test code = 19470-8) 199 K/UL See_Comment [Automated RETCa ge] The system which generated this result transmitted reference range: 130-400 K/UL. The reference range was not used to interpret this result as normal/abnormal. RBC (test code = 67901-5) 4.44 M/UL See_Comment [Automated RETCa ge] The system which generated this result transmitted reference range: 3.80-5.40 M/UL. The reference range was not used to interpret this result as normal/abnormal. RDW (test code = 20789-9) 12.4 % See_Comment [Automated RETCa ge] The system which generated this result transmitted reference range: 11.5-15.0 %. The reference range was not used to interpret this result as normal/abnormal. WBC (test code = 80001-7) 5.0 K/UL See_Comment [Automated RETCa ge] The system which generated this result transmitted reference range: 3.5-11.0 K/UL. The reference range was not used to interpret this result as normal/abnormal. Lipid Panel w/ Chol/HDL [id number] 00:00:00* Test Item Value Reference Range Interpretation Comme nts Cholesterol, Total (test code = 2093-3) 175 mg/dL See_Comment [Automated message] The system which generated this result transmitted reference range: 100-199 mg/dL. The reference range was not used to interpret this result as normal/abnormal. Triglycerides (test code = 2571-8) 181 mg/dL See_Comment H [Automated RETCa ge] The system which generated this result transmitted reference range: 0-149 mg/dL. The reference range was not used to interpret this result as normal/abnormal. HDL Cholesterol (test code = 2085-9) 48 mg/dL See_Comment [Automated messa ge] The system which generated this result transmitted reference range: >39 mg/dL. The reference range was not used to interpret this result as normal/abnormal. T. Chol/HDL Ratio (test code = 9830-1) 3.6 ratio See_Comment [Automated [employer]] The system which generated this result transmitted reference range: 0.0-4.4 ratio. The reference range was not used to interpret this result as normal/abnormal.
[2024-06-21] MEDS ORDERED: TRAMADOL HCL 50 MG TAB ONE (15:24)
[2024-06-21] MEDS ORDERED: ACETAMINOPHEN 500 MG TAB ONE (15:24)
--- NOTE | 2024-06-21 16:04 | RAD REPORT ---
EXAMINATION: XR Ankle Left 3 View CLINICAL INDICATION: Female, [address] [facility] MAIN PAIN Bed Name: 4 TECHNIQUE: 3 view radiographs of the left ankle were obtained. COMPARISON: No prior exam. FINDINGS: No bone or joint abnormality seen. Small calcaneal spur. Enthesopathy at the Achilles tendo n attachment. Degenerative changes of the midfoot articulations. Mild to moderate soft tissue swelling anterior to the ankle. IMPRESSION: No acute osseous abnormalities. Soft tissue swelling anterior to the ankle. Other incidental findings as above.
--- NOTE | 2024-06-21 16:09 | RAD REPORT ---
EXAMINATION: XR Foot Left 3 View CLINICAL INDICATION: Female, 73 years old. [facility] MAIN PAIN Bed Name: [id number] TECHNIQUE: 3 view radiographs of the left foot were obtained. COMPARISON: No prior exam. FINDINGS: Mildly displaced and comminuted fractures along the anterior neck of the second metatarsal and neck of the third metatarsal. Mildly displaced corner fracture versus chronic irregularity at the medial base of the great toe proximal phalanx. Alignment is otherwise seen. No evidence of focal bone lesion. Soft tissue swelling anterior to the ankle and along the dorsum of the forefoot. Up to moderate degenerative changes of the midfoot articulations most pronounced at the first tarsometat arsal joint. IMPRESSION: Fractures of the distal second and third metatarsals and questionable corner fracture at the medial b ase of the great toe proximal phalanx.
--- NOTE | 2024-06-21 16:15 | ER ---
Nurse's Notes [facility] Name: Soni Kumar Age: 73 yrs Sex: Female : 1950 Arrival Date: 06/21/2024 Time: 13:51 Bed 9 Private MD: Diagnosis: Fracture of unspecified metatarsal bone(s), left foot, initial encounter for closed fracture-Second and Third;Displaced fracture of proximal phalanx of left great toe, initial encounter for closed fracture Presentation: 06/21 14:13 Chief complaint: Patient states: Fell Sunday with slippery socks on. L foot pain since. ll1 Coronavirus screen: Client denies travel out of the [place] in the last 14 days. At this time, the client does not indicate any symptoms associated with coronavirus-19. Ebola Screen: Patient denies travel to an Ebola-affected area in the 21 days before illness onset. Initial Sepsis Screen: Does the patient meet any 2 criteria? No. Patient's initial sepsis screen is negative. Does the patient have a suspected source of infection? No. Patient's initial sepsis screen is negative. Risk Assessment: Do you want to hurt yourself or someone else? Patient reports no desire to harm self or others. Onset of symptoms was June 16, 2024. 14:13 Method Of Arrival: Wheelchair ll1 14:13 Acuity: BEENA 4 ll1 Triage Assessment: 14:14 General: Appears uncomfortable, Behavior is calm, cooperative, appropriate for age. ll1 Pain: Complains of pain in left foot. Musculoskeletal: Reports pain in left foot. Historical: - Allergies: 14:14 No Known Allergies; ll1 - PMHx: 14:14 Hypertensive disorder; Hypercholesterolemia; Hypothyroidism; ll1 - PSHx: 14:14 None; ll1 - Immunization history:: Adult Immunizations up to date. - Infectious Disease History:: Denies. - Social history:: Smoking status: Patient denies any tobacco usage or history of. Screenin:[facility] ED Fall Risk Assessment (Adult) History of falling in the last 3 months, ha1 including since admission Yes- single mechanical fall (1 pt) Confusion or Disorientation No (0 pts) Intoxicated or Sedated No (0 pts) Impaired Gait Yes (1 pt) Mobility Assist Device Used Yes (1 pt) Altered Elimination No (0 pt) Score/Fall Risk Level 3 or more points = High Risk Oriented to surroundings, Maintained a safe environment, Educated pt \T\ family on fall prevention, incl call for assistance when getting out of bed, Hourly rounding (assess needs \T\ fall precautionary measures) done, Used ambulatory aids as needed (educated on \T\ assisted with). Abuse screen:. Nutritional screening: No deficits noted. Tuberculosis screening: No symptoms or risk factors identified. Assessment: 14:45 General: Appears comfortable, Behavior is calm, cooperative. Pain: Complains of pain in ha1 left foot Pain does not radiate. Pain currently is 7 out of 10 on a pain scale. Quality of pain is described as aching. Neuro: Level of Consciousness is awake, alert, obeys commands, Oriented to person, place, time, situation. Cardiovascular: Capillary refill < 3 seconds Patient's skin is warm and dry. Respiratory: Airway is patent Respiratory effort is even, unlabored, Respiratory pattern is regular, symmetrical. GI: No signs and/or symptoms were reported involving the gastrointestinal system. Abdomen is round non-distended, obese. Derm: Skin is pink, warm \T\ dry. Musculoskeletal: Reports pain in left foot. 15:43 Reassessment: Patient and/or family updated on plan of care and expected duration. Pain ha1 level reassessed. Patient is alert, oriented x 3, equal unlabored respirations, skin warm/dry/pink. 16:49 Reassessment: Patient and/or family updated on plan of care and expected duration. Pain ha1 level reassessed. Patient is alert, oriented x 3, equal unlabored respirations, skin warm/dry/pink. Patient states feeling better. Patient states symptoms have improved. Vital Signs: 14:13 BP 176 / 74; Pulse 64; Resp 17; Temp 97.7; Pulse Ox 95% ; Weight 81.19 kg; Height 5 ft. ll1 2 in. ; Pain 8/10; 15:30 BP 165 / 78; Pulse 65; Resp 18 S; Pulse Ox 100% on R/A; ha1 16:30 BP 158 / 78; Pulse 67; Resp 19 S; Pulse Ox 98% on R/A; ha1 14:13 Body Mass Index 32.74 (81.19 kg, 157.48 cm) ll1 14:13 Pain Scale: Adult ll1 ED Course: 13:56 Patient arrived in ED. mr 14:08 Hal Cordova PA is PHCP. cp 14:08 Zaria Hernandez MD is Attending Physician. cp 14:10 Patient has correct armband on for positive identification. Placed in gown. Bed in low ha1 position. Call light in reach. Side rails up X 1. 14:10 Provided Education on: plan of care . ha1 14:14 Triage completed. ll1 14:14 Arm band placed on. ll1 14:56 XRAY Ankle LEFT 3 view In Process Unspecified. EDMS 14:56 XRAY Foot LEFT 3 View In Process Unspecified. EDMS 15:26 Patient placed in an exam room. ll1 15:44 Joyce Johnson, NING is Primary Nurse. ha1 16:11 Tristin Bales DPM is Referral Physician. cp 16:50 No provider procedures requiring assistance completed. Patient did not have IV access ha1 during this emergency room visit. Administered Medications: 15:28 Drug: traMADol PO 50 mg PO once Route: PO; ha1 16:36 Follow up: Response: No adverse reaction; Marked relief of symptoms; Pain is decreased ha1 15:28 Drug: Acetaminophen PO 1000 mg PO once Route: PO; ha1 16:36 Follow up: Response: No adverse reaction; Marked relief of symptoms ha1 Medication: 15:45 VIS not applicable for this client. ha1 Outcome: 16:14 Discharge ordered by MD. cp 16:50 Discharged to home via wheelchair, with family, ha1 16:50 Condition: stable 16:50 Discharge instructions given to patient, Instructed on discharge instructions, follow up and referral plans. medication usage, Demonstrated understanding of instructions, follow-up care, medications, Prescriptions given X 1, 16:50 Patient left the ED. ha1 Signatures: Dispatcher [employer] EDMS Dyan Jaffe, Reg Reg mr Hal Cordova PA PA cp Evelyn German RN RN 1 Joyce Johnson RN RN ha1 Corrections: (The following items were deleted from the chart) 14:59 14:14 Pain: Complains of pain in R knee and R ankle ll1 ll1 14:59 14:14 Musculoskeletal: Reports pain in R knee and R ankle ll1 ll1 14:59 14:14 Derm: Reports abrasion R knee ll1 ll1
--- NOTE | 2024-06-21 16:15 | EDPHYS ---
Physician Documentation [facility] Name: Soni Kumar Age: 73 yrs Sex: Female : 1950 Arrival Date: 06/21/2024 Time: 13:51 Bed 9 Private MD: ED Physician Zaria Hernandez HPI: 06/21 14:20 This 73 yrs old Female presents to ER via Wheelchair with complaints of Fall cp Injury. 14:20 The patient presents with pain, that is acute. cp 14:20 The complaints affect the left footand left ankle. Context: resulted from a mis-step, cp on a slippery surface, the patient can fully bear weight, the patient is able to ambulate, with moderate difficulty. Onset: The symptoms/episode began/occurred 5 day(s) ago. Associated signs and symptoms: The patient has no apparent associated signs or symptoms. Historical: - Allergies: 14:14 No Known Allergies; ll1 - PMHx: 14:14 Hypertensive disorder; Hypercholesterolemia; Hypothyroidism; ll1 - PSHx: 14:14 None; ll1 - Immunization history:: Adult Immunizations up to date. - Infectious Disease History:: Denies. - Social history:: Smoking status: Patient denies any tobacco usage or history of. ROS: 14:25 MS/extremity: Positive for pain, swelling, tenderness, of the left foot and left ankle, cp 14:25 Neck: Negative for pain with movement, pain at rest, cp 14:25 Back: Negative for pain at rest, pain with movement, 14:25 All other systems are negative, Exam: 14:30 Constitutional: The patient appears in no acute distress, alert, awake, non-toxic, well cp developed, well nourished, overweight 14:30 Head/Face: Normocephalic, atraumatic. cp 14:30 Chest/axilla: Inspection: normal, 14:30 Cardiovascular: Rate: normal, 14:30 Respiratory: the patient does not display signs of respiratory distress, Respirations: normal, no use of accessory muscles, 14:30 Back: pain, is absent, ROM is normal, 14:30 Musculoskeletal/extremity: Extremities: noted in the left foot: dorsal side tenderness and pain, noted in the left ankle: swelling, tenderness, ROM: limited passive range of motion due to pain, in the left ankle, Vital Signs: 14:13 BP 176 / 74; Pulse 64; Resp 17; Temp 97.7; Pulse Ox 95% ; Weight 81.19 kg; Height 5 ft. ll1 2 in. ; Pain 8/10; 15:30 BP 165 / 78; Pulse 65; Resp 18 S; Pulse Ox 100% on R/A; ha1 16:30 BP 158 / 78; Pulse 67; Resp 19 S; Pulse Ox 98% on R/A; ha1 14:13 Body Mass Index 32.74 (81.19 kg, 157.48 cm) ll1 14:13 Pain Scale: Adult ll1 Procedures: 16:30 Splinting: Splint applied to left foot and left ankle using walking boot. applied by cp nurse. Examined by me, post splint application: neurovascular intact, Patient tolerated well. MDM: 14:11 Medical Screening Exam initiated cp 16:14 Data reviewed: vital signs, nurses notes, radiologic studies, plain films, and as a cp result, I will discharge patient. 16:14 Differential diagnosis: dislocation, closed fracture, sprain. I considered the cp following discharge prescriptions or medication management in the emergency department Medications were administered in the Emergency Department. See MAR. Care significantly affected by the following chronic conditions: Hypertension. 06/21 14:21 Order name: XRAY Ankle LEFT 3 view; Complete Time: 16:10 cp 06/21 14:21 Order name: XRAY Foot LEFT 3 View; Complete Time: 16:10 cp 06/21 16:07 Order name: Walking boot; Complete Time: 16:48 cp Administered Medications: 15:28 Drug: traMADol PO 50 mg PO once Route: PO; ha1 16:36 Follow up: Response: No adverse reaction; Marked relief of symptoms; Pain is decreased ha1 15:28 Drug: Acetaminophen PO 1000 mg PO once Route: PO; ha1 16:36 Follow up: Response: No adverse reaction; Marked relief of symptoms ha1 Disposition: 06/22 16:42 Chart complete. cp Disposition Summary: 06/21/24 16:14 Discharge Ordered Notes: Location: Home cp Problem: new cp Symptoms: have improved cp Condition: Stable cp Diagnosis - Fracture of unspecified metatarsal bone(s), left foot, initial encounter for closed cp fracture - Second and Third - Displaced fracture of proximal phalanx of left great toe, initial encounter for cp closed fracture Followup: cp - With: Tristin Bales DPM - When: 1 week - Reason: Recheck today's complaints Discharge Instructions: - Discharge Summary Sheet cp - Metatarsal Fracture cp - Toe Fracture cp Forms: - Medication Reconciliation Form cp - Antibiotic Education cp - Prescription Opioid Use cp - Patient Portal Instructions cp - Leadership Thank You Letter cp Prescriptions: - Tramadol 50 mg Oral Tablet - take 1 tablet ORAL route every 8 hours as needed; 12 tablet; Refills: 0, cp Product Selection Permitted Signatures: Dispatcher [employer] EDMS Hal Cordova PA PA cp Evelyn German RN RN ll1 Joyce Johnson RN RN ha1 Corrections: (The following items were deleted from the chart) 06/21 14:21 14:21 Ankle Left 3 View+RAD.RAD.BRZ ordered. EDMS EDMS 14:21 14:21 Foot Left 3 View+RAD.RAD.BRZ ordered. EDMS EDMS
[2024-06-24 15:26] VITALS: BP 158/78; TEMP 97.7; O2SAT 98
== END 2024-06-21 16:50 | disposition home or self-care (01) ==
LOC: ER 13:51
DX: I10 Essential (primary) hypertension (principal); E78.00 Pure hypercholesterolemia, unspecified; E03.9 Hypothyroidism, unspecified; S92.322A Displaced fracture of second metatarsal bone, left foot, initial encounter for closed fracture; S92.332A Displaced fracture of third metatarsal bone, left foot, initial encounter for closed fracture; S92.412A Displaced fracture of proximal phalanx of left great toe, initial encounter for closed fracture; W01.0XXA Fall on same level from slipping, tripping and stumbling without subsequent striking against object, initial encounter
CPT/HCPCS: 99283